=== PATIENT | female | born 1955 | race Caucasian/White ===

== ENCOUNTER 2025-04-10 14:53 | Outpatient (CLI) | payer OTHER | END 2025-04-10 14:54 | disposition home or self-care (01) | LOC: SCSRAD 14:53 | PROVIDERS: ATTEND Nurse Practitioner Family | DX: S69.91XA Unspecified injury of right wrist, hand and finger(s), initial encounter (principal); S62.511A Displaced fracture of proximal phalanx of right thumb, initial encounter for closed fracture ==